=== PATIENT | female | born 2000 | race Caucasian/White ===

== ENCOUNTER 2021-06-17 12:47 | Outpatient (REF) | payer BC, SELFPAY ==
--- NOTE | ~2021-06-17 | US_ITS ---
EXAMINATION: US DIAGNOSTIC ULTRASOUND BREAST, LEFT CLINICAL INFORMATION: 20-year-old with chronic left breast pain upper outer quadrant without palpable mass, discharge, or erythema. No known family history breast cancer. No prior breast imaging. COMPARISON: None. TECHNIQUE: Ultrasound left breast is targeted to the upper outer quadrant. Grayscale imaging and color Doppler are performed without and with harmonics. 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 There is no other cystic or solid mass. No architectural abnormality. No focal duct ectasia. No skin thickening or edema tracking in soft tissue planes. No hyperemia. Results are discussed with the patient at time of visit. The solid mass 12:00 position is statistically most likely a fibroadenoma. Management options discussed with the patient. Serial follow-up surveillance is reasonable management which patient agreed. US/US breast LT limited IMPRESSION: 1. Circumscribed solid mass 12:00 position measuring 1.3 cm, likely fibroadenoma. 2. Otherwise unremarkable targeted left breast ultrasound. ASSESSMENT: BI-RADS 3: Probably Benign RECOMMENDATION: Targeted left breast ultrasound in 6 months. This patient's information was entered into a reminder system with a target due date for their next breast imaging.
== END 2021-06-17 12:48 | disposition home or self-care (01) ==
LOC: HO.MAMMO 12:47
PROVIDERS: Visit Provider Registered Nurse
DX: N64.4 Mastodynia (principal)
CPT/HCPCS: 76642